=== PATIENT | female | born 1950 | race Caucasian/White ===

== ENCOUNTER → 2017-07-06 | Outpatient (CLI) | payer MEDICARE ==
--- NOTE | 2017-07-06 10:51 | MM ---
Reason for exam: clinical finding. Last mammogram was performed 1 year ago. History: Patient is postmenopausal. Family history of breast cancer in sister at age 64 and breast cancer in paternal grandmother. Benign excisional biopsy of the right breast, 1979. Took estrogen for 5 years 1 month beginning at age 46. Physical Findings: Nurse did not find any significant physical abnormalities on exam. MG 3D Diag Mammo W/Cad NAUN Bilateral CC and MLO view(s) were taken. Prior study comparison: July 05, 2016, bilateral MG 3d diag mammo w/cad NAUN. July 01, 2015, bilateral MG diagnostic mammo w CAD NAUN. The breast tissue is heterogeneously dense. This may lower the sensitivity of mammography. No suspicious abnormality. No significant new findings when compared with previous films. These results were verbally communicated with the patient and result sheet given to the patient on 07/06/17. ASSESSMENT: Negative, BI-RAD 1 RECOMMENDATION: Routine screening mammogram of both breasts in 1 year.
== END | disposition home or self-care (01) ==
LOC: RADMAMWWP 09:49
PROVIDERS: ATTEND Family Medicine
DX: N64.4 Mastodynia (principal)
CPT/HCPCS: G0204; G0279

== ENCOUNTER → 2018-03-04 | Outpatient (CLI) | payer MEDICARE ==
--- NOTE | 2018-03-05 06:53 | US ---
EXAMINATION TYPE: US thyroid st tissue head/neck DATE OF EXAM: 03/04/2018 COMPARISON: NONE CLINICAL HISTORY: E04.1 SINGLE THYROID NODULE. Lump right neck, possible thyroid nodule GLAND SIZE: Right Lobe: 4.9 x 2.1 x 2.6 cm Overall Parenchyma: homogenous Left Lobe: 4.6 x 1.2 x 1.2 cm Overall Parenchyma: homogeneous Isthmus Thickness: 0.3 cm NODULES RIGHT: # of nodules measured on right: 1 1. 2.7 X 1.6 x 2.1 cm mixed nodule at the mid pole with well-defined margins; . This nodule is wid er than tall and shows intranodular vascularity. Prior size: no prior LEFT: # of nodules measured on left: 0 ISTHMUS: # of nodules measured in the isthmus: 0 Bilateral neck scanned, no evidence of lymphadenopathy. Single nodule right thyroid lobe IMPRESSION: 2.7 cm right complex thyroid nodule
== END | disposition home or self-care (01) ==
LOC: RADUSWWP 14:46
PROVIDERS: ATTEND Internal Medicine
DX: E04.1 Nontoxic single thyroid nodule (principal)
CPT/HCPCS: 76536

== ENCOUNTER → 2018-04-03 | Outpatient (CLI) | payer MEDICARE ==
--- NOTE | 2018-04-04 10:41 | NM ---
EXAMINATION TYPE: NM thyroid image w uptake DATE OF EXAM: 04/04/2018 COMPARISON: Thyroid ultrasound 1 month ago. HISTORY: Thyroid nodule per order. TECHNIQUE: Thyroid iodine uptake is calculated and images performed after the oral administration of 304 uCi 1-123 Capsule. FINDINGS: There is focal defect upper to mid pole level right thyroid laterally corresponds to large cystic nodule on ultrasound. The 4 hour iodine uptake is calculated at 9% (normal range 8-14%). The 24-hour iodine uptake is calculated at 23% (normal range 15-35%). IMPRESSION: Normal thyroid uptake. Scan images of the cold defect are concordant with cystic nodule o n ultrasound.
== END | disposition home or self-care (01) ==
LOC: RADNMMAIN 09:45
PROVIDERS: ATTEND Family Medicine
DX: E04.1 Nontoxic single thyroid nodule (principal)
CPT/HCPCS: 78014; A9516

== ENCOUNTER → 2018-04-09 | Outpatient (CLI) | payer MEDICARE ==
[2018-04-09 15:05] LABS: Blood Urea Nitrogen 19 mg/dL (7-17)
--- NOTE | 2018-04-09 17:24 | CT ---
EXAMINATION TYPE: CT abdomen pelvis w con DATE OF EXAM: 04/09/2018 COMPARISON: None HISTORY: 67-year-old female Hematuria and left lower abdominal pain. TECHNIQUE: Contiguous axial scanning of the abdomen and pelvis following administration of 100 ml Iso sunni 300 IV contrast. Delayed images through the kidneys and coronal/sagittal reconstructions perform ed. CT DLP: 532.5 mGycm Automated exposure control for dose reduction was used. FINDINGS: Heart normal size without pericardial effusion. Lung bases clear without pleural effusion. No focal liver lesion or biliary ductal dilatation. Portal venous system is patent. Gallbladder, adrenal glands, spleen, and pancreas appear within normal limits. Subcentimeter hypodensity medial superior aspect of the right kidney too small for accurate CT charac terization, likely a cyst. There is a 7 mm calculus at the left UPJ but excreting contrast has passed into the ureter. There is a punctate nonobstructive 2 mm left renal calculus in the upper pole and mild asymmetric left-sided p elvocaliectasis. Some scattered prominent left periaortic lymph nodes measure up to 7 mm. More inferiorly, left periao rtic lymph nodes measure up to 9 mm. No mesenteric lymphadenopathy. No dilated small bowel, free fluid, or free air. There is moderate stool burden and a redundant proximal sigmoid. No pericolonic inflammatory change. Bladder urine distended. Uterus surgically absent. No abnormal fluid collection in the pelvis or pelv ic lymphadenopathy seen. Neither ovary is visualized. Bones: Osteitis pubis and mild degenerative changes at the hips. Degenerative changes in the lower diego mbar spine with grade 1 anterolisthesis at L5-S1 secondary to hypertrophic facet arthropathy. IMPRESSION: 1. A 7 MM CALCULUS AT THE LEFT UPJ WITHOUT SIGNIFICANT OBSTRUCTIVE UROPATHY AT THIS TIME. 2. AN ADDITIONAL PUNCTATE 2 MM NONOBSTRUCTIVE LEFT RENAL CALCULUS. 3. FEW SCATTERED PROMINENT LEFT PARA-AORTIC LYMPH NODES IN THE RETROPERITONEUM MEASURING UP TO 9 MM. THESE ARE NONSPECIFIC. RECOMMEND A THREE-MONTH FOLLOW-UP EXAM TO ENSURE STABILITY/RESOLUTION. 4. MODERATE STOOL BURDEN.
== END | disposition home or self-care (01) ==
LOC: RADCTMAIN 14:19
PROVIDERS: ATTEND Family Medicine
DX: N20.2 Calculus of kidney with calculus of ureter (principal); R19.5 Other fecal abnormalities
CPT/HCPCS: 82565; 84520; 74177; 36415; Q9967

== ENCOUNTER 2018-04-23 12:05 | Day surgery (SDC) | payer MEDICARE ==
[2018-04-23 12:52] VITALS: RESP 16; TEMP 97.8
[2018-04-23 13:42] VITALS: BP 137/66; PULSE 47
--- NOTE | 2018-04-23 13:56 | US ---
ULTRASOUND GUIDED FNA THYROID BIOPSY: CLINICAL HISTORY: Right thyroid nodule FINDINGS: The procedure was explained to the patient. The risks, complications, benefits and alternatives were discussed and any questions were answered. Informed consent was obtained. Patient was placed supin e on the ultrasound table and prepped and draped in the usual sterile fashion. Utilizing a 25 gauge needle, five passes were made into the right thyroid nodule. Patient was stable throughout the procedure. Pathology is pending. All elements of maximal barrier technique were utilized. IMPRESSION: 1. Successful ultrasound guided FNA thyroid biopsy.
== END 2018-04-23 13:44 | disposition home or self-care (01) ==
LOC: RADPROMAIN 12:05
PROVIDERS: ATTEND Family Medicine
DX: E04.1 Nontoxic single thyroid nodule (principal)
CPT/HCPCS: 10022; 76942; 88173; 88305

== ENCOUNTER → 2018-08-08 | Outpatient (CLI) | payer MEDICARE ==
--- NOTE | 2018-08-08 10:54 | MM ---
Reason for exam: additional evaluation requested from prior study. Last mammogram was performed 1 year and 1 month ago. History: Patient is postmenopausal. Family history of breast cancer in sister at age 64 and breast cancer in paternal grandmother. Benign excisional biopsy of the right breast, 1979. Took estrogen for 5 years 1 month beginning at age 46. Physical Findings: Nurse did not find any significant physical abnormalities on exam. MG 3D Diag Mammo W/Cad NAUN Bilateral CC and MLO view(s) were taken. Prior study comparison: July 06, 2017, bilateral MG 3d diag mammo w/cad NAUN. July 05, 2016, bilateral MG 3d diag mammo w/cad NAUN. The breast tissue is heterogeneously dense. This may lower the sensitivity of mammography. Stable benign calcifications. No significant new findings when compared with previous films. These results were verbally communicated with the patient and result sheet given to the patient on 08/08/18. ASSESSMENT: Benign, BI-RAD 2 RECOMMENDATION: Routine screening mammogram of both breasts in 1 year.
--- NOTE | 2018-08-08 12:26 | BD ---
EXAMINATION TYPE: Axial Bone Density DATE OF EXAM: 08/08/2018 COMPARISON: 07.05.2016 CLINICAL HISTORY: 68 YR OLD FEMALE.....ICD-10 CODE: Z78.80 POST MENOPAUSAL SYMPTOMS, M85.9, M89.9 Height: 67 Weight: 156 FRAX RISK QUESTIONS: History of Fracture in Adulthood: YES RISK FACTORS HISTORY OF: HX OF RT FOREARM FX....AT 10 YRS OLD HX OF PATELLA FX AT AGE 65 Active: YES Postmenopausal woman: TOTAL HYST AT AGE 49 YRS MEDICATIONS: Additional Medications: LOW DOSE, TAMACOR, CALCIUM AND VIT D, STATINS FOR CHOLESTEROL Additional History: ANXIETY, SLEEP DISORDER, EXAM MEASUREMENTS: Bone mineral densitometry was performed using the [employer] System. Bone mineral density as measured about the Lumbar spine is: ----- L1-L4(G/cm2): 1.110 T Score Values are as follows: ----- L1: -1.1 ----- L2: -0.8 ----- L3: 0.1 ----- L4: -0.7 ----- L1-L4: -0.6 Bone mineral density has: Increased 0.9% since study of: 07.05.2016 Bone mineral density about the R hip (g/cm2): 0.857 Bone mineral density about the L hip (g/cm2): 0.850 T Score values are as follows: -----R Neck: -1.4 -----L Neck: -1.5 -----R Total: -1.2 -----L Total: -1.2 Bone mineral density has: Increased 0.8% since study of: 07.05.2016 FRAX%s: THERE IS A 15.6% CHANCE FOR A MAJOR OSTEOPOROTIC FX AND 2.0% FOR HIP FX.....PROBABILITY O F FX IN 10 YRS TIME IMPRESSION: Osteopenia bilateral femora. NOTE: T-SCORE=SD OF THE YOUNG ADULT MEAN.
== END | disposition home or self-care (01) ==
LOC: RADMAMWWP 09:43
PROVIDERS: ATTEND Family Medicine
DX: N64.4 Mastodynia (principal); M89.9 Disorder of bone, unspecified
CPT/HCPCS: 77080; 77066; G0279; 77062

== ENCOUNTER → 2019-04-10 | Outpatient (CLI) | payer MEDICARE ==
--- NOTE | 2019-04-10 14:44 | US ---
EXAMINATION TYPE: US thyroid st tissue head/neck DATE OF EXAM: 04/10/2019 COMPARISON: March 04, 2018 ultrasound CLINICAL HISTORY: E04.1 THYROID NODULE. GLAND SIZE: Right Lobe: 3.6 x 1.3 x 1.3 cm Overall Parenchyma: homogenous Left Lobe: 4.1 x x1.0 x 1.1 cm Overall Parenchyma: homogeneous Isthmus Thickness: 0.2 cm NODULES RIGHT: # of nodules measured on right: 1 1. 1.3 X 0.7 x 0.7 cm mixed nodule at the mid pole with well-defined margins.; . This nodule is wi jack than tall and shows no intranodular vascularity. Prior size: 2.7 x 1.6 x 2.1 cm LEFT: # of nodules measured on left: 1 1. 0.5 X 0.4 x 0.2 cm mixed nodule at the upper pole with well-defined margins; . This nodule is w ider than tall and shows intranodular vascularity. Prior size: no prior ISTHMUS: # of nodules measured in the isthmus: 1 1. 0.5 X 0.4 x 0.3 cm solid nodule at the lateral pole with well-defined margins; . This nodule is wider than tall and shows intranodular vascularity. Prior size: no prior Bilateral neck scanned, no evidence of lymphadenopathy. Fairly homogeneous normal-sized thyroid with small nodules redemonstrated bilaterally IMPRESSION: As above, no new suspicious nodules. Interval aspiration of largest dominant cystic nodule right thyr oid with recurrent smaller cystic nodule now present.
== END | disposition home or self-care (01) ==
LOC: RADUSWWP 14:05
PROVIDERS: ATTEND Family Medicine
DX: E04.1 Nontoxic single thyroid nodule (principal)
CPT/HCPCS: 76536

== ENCOUNTER → 2019-07-03 | Outpatient (CLI) | payer MEDICARE ==
--- NOTE | 2019-07-03 13:40 | XR ---
EXAMINATION TYPE: XR Hip Complete RT DATE OF EXAM: 07/03/2019 CLINICAL HISTORY: Right hip pain. TECHNIQUE: AP and frogleg views of the right hip are obtained. COMPARISON: CT abdomen and pelvis April 09, 2018. FINDINGS: There is no acute fracture/dislocation evident in the right hip. [id number] axial moisés int space loss is redemonstrated. . No significant spurring or subchondral cystic change. Femoral hea d shape is maintained. The overlying soft tissue appears unremarkable. IMPRESSION: As above .
== END | disposition home or self-care (01) ==
LOC: RADXRMAIN 12:15
PROVIDERS: ATTEND Family Medicine
DX: M25.551 Pain in right hip (principal)
CPT/HCPCS: 73502

== ENCOUNTER → 2020-03-31 | Outpatient (CLI) | payer MEDICARE ==
--- NOTE | 2020-03-31 16:08 | US ---
EXAMINATION TYPE: US thyroid st tissue head/neck DATE OF EXAM: 03/31/2020 COMPARISON: NONE CLINICAL HISTORY: E04.1 Thyroid nodule. Follow up too previous thyroid nodules. GLAND SIZE: Right Lobe: 4.7 x 1.1 x .9 cm Overall Parenchyma: homogenous Left Lobe: 4.9 x .8 x 1.2 cm Overall Parenchyma: homogeneous Isthmus Thickness: .3 cm NODULES RIGHT: # of nodules measured on right: 1 1. .8 X .5 x .6 cm mixed nodule at the upper pole with well-defined margins; . This nodule is wide r than tall and shows no intranodular vascularity. Prior size: 1.3 x .7 x .7 cm LEFT: # of nodules measured on left: 1 1. .4 X .2 x .4 cm hypoechoic solid nodule at the upper pole with well-defined margins; . This nod ule is wider than tall and shows intranodular vascularity. Prior size: .5 x .4 x .3 cm ISTHMUS: # of nodules measured in the isthmus: 0 Bilateral neck scanned, no evidence of lymphadenopathy. IMPRESSION: Subcentimeter thyroid nodules show similar appearance to prior
== END | disposition home or self-care (01) ==
LOC: RADUSWWP 15:15
PROVIDERS: ATTEND Family Medicine
DX: E04.1 Nontoxic single thyroid nodule (principal)
CPT/HCPCS: 76536

== ENCOUNTER → 2020-04-09 | Outpatient (CLI) | payer MEDICARE ==
[2020-04-09 12:05] LABS: Basophils % (A) 1 %; Eosinophils # (A) 0.1 k/uL (0-0.7); Eosinophils % (A) 2 %; HCT 41.7 % (34.0-46.0); HGB 13.6 gm/dL (11.4-16.0); Lymphocytes # (A) 1.1 k/uL (1.0-4.8); Lymphocytes % (A) 25 %; MCH 32.5 pg (25.0-35.0); MCHC 32.6 g/dL (31.0-37.0); MCV 99.9 fL (80.0-100.0); Mean Platelet Volume 7.7; Monocytes # (A) 0.3 k/uL (0-1.0); Monocytes % (A) 6 %; Neutrophils # (A) 2.8 k/uL (1.3-7.7); Neutrophils % (A) 65 %; Platelet Count 210 k/uL (150-450); RBC 4.18 m/uL (3.80-5.40); RDW 12.9 % (11.5-15.5); WBC 4.2 k/uL (3.8-10.6)
[2020-04-09 12:45] LABS: Partial Thromboplastin Time 24.1 sec (22.0-30.0); Prothrombin Time 10.3 sec (9.0-12.0)
== END | disposition home or self-care (01) ==
LOC: LABWHC1 09:58
DX: U07.1 COVID-19 (principal)
CPT/HCPCS: 85025; 85610; 85730; 36415; U0003

== ENCOUNTER → 2020-07-15 | Outpatient (CLI) | payer MEDICARE ==
--- NOTE | 2020-07-15 16:00 | BD ---
EXAMINATION TYPE: Axial Bone Density DATE OF EXAM: 07/15/2020 COMPARISON: Prior bone scan August 08, 2018 CLINICAL HISTORY: Postmenopausal female. Osteoporosis. Height: 68.5 inches Weight: 151.1 pounds FRAX RISK QUESTIONS: Alcohol (3 or more units per day): Family History (Parent hip fracture): Glucocorticoids (More than 3mos): NO (Ex: prednisone, prednisolone, methylprednisolone, dexamethasone, and hydrocortisone). History of Fracture in Adulthood: yes Secondary Osteoporosis: 1. Type 1 Diabetes: no 2. Hyperthyroidism: no 3. Menopause before 45: no 4. Malnutrition: no 5. Chronic liver disease: no Rheumatoid Arthritis: no Current Tobacco Use: no RISK FACTORS HISTORY OF: Family History of Osteoporosis: no Active: yes Diet low in dairy products/other sources of calcium: no Postmenopausal woman: yes MEDICATIONS: flecainide, zilantel, camacord, atorvastatin Additional History: EXAM MEASUREMENTS: Bone mineral densitometry was performed using the [employer] System. Bone mineral density as measured about the Lumbar spine is: ----- L1-L4(G/cm2): 1.111 T Score Values are as follows: ----- L2: -0.5 ----- L3: -0.1 ----- L4: -0.8 ----- L1-L4: -0.6 Bone mineral density has: decreased -0.3 % since study of: 08.08.2018 Bone mineral density about the R hip (g/cm2): 0.831 Bone mineral density about the L hip (g/cm2): 0.820 T Score values are as follows: -----R Neck: -1.5 -----L Neck: -1.6 -----R Total: -1.7 -----L Total: -1.7 Bone mineral density has: decreased -6.7 % since study of: 08.08.2018 IMPRESSION: Osteopenia (T Score between -2.5 and -1) remains present left hip. Bone density decreased from prior. There remains slightly increased risk of fracture and the patient may be considered for treatment. Re-Screen 2-5 years. NOTE: T-SCORE=SD OF THE YOUNG ADULT MEAN.
== END | disposition home or self-care (01) ==
LOC: RADBDWWP 15:03
PROVIDERS: ATTEND Family Medicine
DX: M85.80 Other specified disorders of bone density and structure, unspecified site (principal); M81.0 Age-related osteoporosis without current pathological fracture
CPT/HCPCS: 77080

== ENCOUNTER → 2020-07-20 | Outpatient (CLI) | payer MEDICARE ==
--- NOTE | 2020-07-21 10:55 | ECHOF ---
Referral Reason:I48.0 A fib MEASUREMENTS -------- HEIGHT: 167.6 cm WEIGHT: 59.0 kg BP: RVIDd: 2.9 cm (< 3.3) IVSd: 0.8 cm (0.6 - 1.1) LVIDd: 3.8 cm (3.9 - 5.3) LVPWd: 1.1 cm (0.6 - 1.1) IVSs: 1.4 cm LVIDs: 1.7 cm LVPWs: 1.6 cm Ao Diam: 2.9 cm (2.0 - 3.7) AV Cusp: 2.0 cm (1.5 - 2.6) LA Diam: 2.4 cm (2.7 - 3.8) MV EXCURSION: 17.007 mm (> 18.000) MV EF SLOPE: 151 mm/s (70 - 150) EPSS: 0.5 cm MV E Nikko: 0.85 m/s MV DecT: 161 ms MV A Nikko: 0.86 m/s MV E/A Ratio: 0.99 RAP: 5.00 mmHg RVSP: 29.66 mmHg FINDINGS -------- This was a technically good study. The left ventricular size is normal. Left ventricular wall thickness is normal. Overall left vent ricular systolic function is normal with, an EF between 55 - 60 %. The diastolic filling pattern is normal for the age of the patient 8.50. The right ventricle is normal in size. The left atrial size is normal. Normal LA size by volume 22+/-6 ml/m2. The right atrial size is normal. Interatrial and interventricular septum intact. The aortic valve is trileaflet and appears structurally normal. The mitral valve is normal. There is trace to mild mitral regurgitation. The tricuspid valve appears structurally normal. Mild tricuspid regurgitation present. Right vent ricular systolic pressure is normal at < 35 mmHg. There is no pulmonic regurgitation present. The aortic root size is normal. Normal inferior vena cava with normal inspiratory collapse consistent with estimated right atrial pre ssure of 5 mmHg. There is no pericardial effusion. CONCLUSIONS -------- 1. The left ventricular size is normal. 2. Left ventricular wall thickness is normal. 3. Overall left ventricular systolic function is normal with, an EF between 55 - 60 %. 4. The diastolic filling pattern is normal for the age of the patient 8.50 5. There is trace to mild mitral regurgitation. 6. Mild tricuspid regurgitation present. 7. There is no pericardial effusion. CHANGE MANAGEMENT MANAGER: Melissa Bacon RDCS
== END | disposition home or self-care (01) ==
LOC: RADECHMAIN 12:01
PROVIDERS: ATTEND Internal Medicine
DX: I08.1 Rheumatic disorders of both mitral and tricuspid valves (principal); I48.0 Paroxysmal atrial fibrillation; Z51.81 Encounter for therapeutic drug level monitoring; Z79.899 Other long term (current) drug therapy
CPT/HCPCS: 93306

== ENCOUNTER → 2021-03-29 | Outpatient (CLI) | payer MEDICARE ==
--- NOTE | 2021-03-29 13:32 | US ---
EXAMINATION TYPE: US kidneys/renal and bladder DATE OF EXAM: 03/29/2021 COMPARISON: US 08/08/18, CT 04/09/18 CLINICAL HISTORY: R31.29 MICROSCOPIC HEMATURIA. Painful Urination EXAM MEASUREMENTS: Right Kidney: 11.0 x 5.4 x 4.8 cm Left Kidney: 10.7 x 4.9 x 4.7 cm Post Void Residual Volume: 11.1 mL Right Kidney: No hydronephrosis or masses seen Left Kidney: No hydronephrosis or masses seen Bladder: wnl Bilateral Jets seen: Yes Normal Post Void Residual: Yes 11 mL No hydronephrosis or shadowing renal calculi. IMPRESSION: 1. No hydronephrosis or renal calculi. 2. Tiny post void urinary bladder residual.
== END | disposition home or self-care (01) ==
LOC: RADUSWWP 12:47
PROVIDERS: ATTEND Family Medicine
DX: R31.29 Other microscopic hematuria (principal); R30.9 Painful micturition, unspecified
CPT/HCPCS: 76770

== ENCOUNTER → 2021-04-11 | Outpatient (CLI) | payer MEDICARE ==
--- NOTE | 2021-04-11 16:03 | US ---
EXAMINATION TYPE: US thyroid st tissue head/neck DATE OF EXAM: 04/11/2021 COMPARISON: 03/31/2020 CLINICAL HISTORY: E04.1 THYROID NODULE. not on thyroid meds. Follow up nodule. GLAND SIZE: Right Lobe: 4.2 x 1.3 x 1.2 cm Overall Parenchyma: homogenous Left Lobe: 3.9 x 1.2 x 0.9 cm Overall Parenchyma: homogeneous Isthmus Thickness: 0.2 cm NODULES RIGHT: # of nodules measured on right: 1 1. 0.6 X 0.5 x 0.4 cm, mid , solid or almost completely solid, hypoechoic nodule, which is wider th an tall, with smooth margins, with echogenic foci. Prior size: 0.8 x 0.5 x 0.6 cm LEFT: # of nodules measured on left: 1 1. 0.4 X 0.3 x 0.2 cm, mid medial, solid or almost completely solid, hypoechoic nodule, which is wi jack than tall, with smooth margins, with echogenic foci. Prior size: 0.4 x 0.2 x 0.4 cm ISTHMUS: # of nodules measured in the isthmus: 0 Bilateral neck scanned, no evidence of lymphadenopathy. IMPRESSION: Bilateral thyroid nodules appear relatively similar to the prior exam. 2017 ACR TI-RADS LEVEL: TI-RADS 5 - Highly Suspicious: Follow if > 0.5 cm, FNA if > 1.0 cm *Highest TI-RADS level nodule reported
== END | disposition home or self-care (01) ==
LOC: RADUSWWP 15:17
PROVIDERS: ATTEND Family Medicine
DX: E04.2 Nontoxic multinodular goiter (principal)
CPT/HCPCS: 76536

== ENCOUNTER → 2022-05-24 | Outpatient (CLI) | payer MEDICARE ==
--- NOTE | 2022-05-25 06:09 | US ---
EXAMINATION TYPE: US thyroid st tissue head/neck DATE OF EXAM: 05/24/2022 COMPARISON: US 04/11/2021 and older ultrasounds. CLINICAL HISTORY: E04.1 THYROID NODULE. Thyroid Nodule GLAND SIZE: Right Lobe: 4.0 x 1.4 x 1.4 cm Overall Parenchyma: homogenous Left Lobe: 4.1 x 1.2 x 0.9 cm Overall Parenchyma: homogeneous Isthmus Thickness: 1.9 cm NODULES RIGHT: # of nodules measured on right: 1 1. 0.8 x 0.7 x 0.5 cm, mid , cystic or almost completely cystic, hypoechoic nodule, which is taller than wide, with smooth margins, with echogenic foci. Prior size: 0.8 x 0.7 x 0.5 cm LEFT: # of nodules measured on left: 1 1.0.5 x 0.3 x 0.5 cm mid , spongiform, hypoechoic nodule, which is wider than tall, with smooth pb ns, without echogenic foci. Not significant change from 2019 study. ISTHMUS: # of nodules measured in the isthmus: 1 1. 0.8 x 0.2 x 0.6 cm solid or almost completely solid, hypoechoic nodule, which is wider than tall, with smooth margins, without echogenic foci. Not significantly changed from 2019 study when accounti ng for technical differences Bilateral neck scanned, no evidence of lymphadenopathy. Persistent homogeneous slightly small thyroid gland with scattered small nodules as detailed above. IMPRESSION: No new or enlarging nodules. No significant change from older studies. 2017 ACR TI-RADS LEVEL: *Highest TI-RADS level nodule reported
== END | disposition home or self-care (01) ==
LOC: RADUSWWP 16:42
PROVIDERS: ATTEND Family Medicine
DX: E04.1 Nontoxic single thyroid nodule (principal)
CPT/HCPCS: 76536

== ENCOUNTER → 2022-07-17 | Outpatient (CLI) | payer MEDICARE ==
--- NOTE | 2022-07-17 14:54 | BD ---
EXAMINATION TYPE: Axial Bone Density DATE OF EXAM: 07/17/2022 COMPARISON: 07-15-2020 CLINICAL HISTORY: 71 years year old Female. ICD-10 CODE: M85.9 DISORDER OF BONE DENSITY Height: 67IN Weight: 154LB FRAX RISK QUESTIONS: History of Fracture in Adulthood: YES Secondary Osteoporosis: RISK FACTORS HISTORY OF: Family History of Osteoporosis: YES Active: YES Postmenopausal woman: YES Take estrogen and/or progesterone medications: YES, NONE CURRENT How long: ABOUT 5 YEARS Lost more than 2 inches in height since high school: YES MEDICATIONS: Osteoporosis Medications: Which medication: FOSAMAX NONE CURRENT How Long: ABOUT 5 YEARS Additional Medications: ANXIETY MED, CARDIAC MED, BLOOD THINNER, CALCIUM WITH VITAMIN D Additional History: KNEE, TOES AND FINGERS FRACTURED AN ADULT EXAM MEASUREMENTS: Bone mineral densitometry was performed using the [employer] System. Bone mineral density as measured about the Lumbar spine is: ----- L1-L4(G/cm2): 1.143 T Score Values are as follows: ----- L1: -0.9 ----- L2: -0.2 ----- L3: 0.4 ----- L4: -0.6 ----- L1-L4: -0.3 Bone mineral density has: Increased 3.3% since study of: 07-15-20 Bone mineral density about the R hip (g/cm2): 0.814 Bone mineral density about the L hip (g/cm2): 0.821 T Score values are as follows: -----R Neck: -1.5 -----L Neck: -1.5 -----R Total: -1.5 -----L Total: -1.5 Bone mineral density has: Increased 2.5% since study of: 07-15-20 FRAX%s: The graph provided illustrates a 16.3% chance for a major osteoporotic fx and a 2.6% chance f or the hips probability for fx in 10 years time. IMPRESSION: Osteopenia (T Score between -2.5 and -1). There is slightly increased risk of fracture and the patient may be considered for treatment. Re-Screen 2-5 years. NOTE: T-SCORE=SD OF THE YOUNG ADULT MEAN.
== END | disposition home or self-care (01) ==
LOC: RADBDWWP 13:14
PROVIDERS: ATTEND Family Medicine
DX: M85.89 Other specified disorders of bone density and structure, multiple sites (principal)
CPT/HCPCS: 77080